=== PATIENT | male | born 1985 | race African-American/Black ===

== ENCOUNTER 2016-10-10 13:30 | Emergency (ER) | payer SELFPAY ==
[~2016-10-10] VITALS: Ht 182.9 cm; Wt 105.0 kg
[~2016-10-10 13:30] MED LIST: DICY1TAB26 PO; PROM25SU8 PO; Z.0.NO CURRENT MEDS; ZOFR4TAB3 SL
[2016-10-10 13:31] VITALS: BP 201/117; PULSE 70; RESP 14; TEMP 98.3; O2SAT 100
[2016-10-10] MEDS ORDERED: cloNIDine HCL 0.1 MG TAB PO ONE (14:00)
--- NOTE | 2016-10-10 14:01 | PD ---
HPI Chief Complaint: Hypertension Time Seen by Provider: 14:10 Travel History International Travel<30 days: No Contact w/Intl Traveler<30days: No Traveled to known affect area: No History of Present Illness HPI 30-year-old male presents for evaluation of hypertension. 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 He reports that several years ago he was told that he has high blood pressure however he lost a lot of weight and felt like his blood pressure was probably under control. He does not check his blood pressure regularly. Incidentally during review of systems he endorses occasional bright red blood per rectum during a bowel movement. He reports a few times a month for the past 10 years this is been going on. Denies any abdominal pain, rectal pain. Denies any lightheadedness or dizziness. No other complaints. PFSH Past Medical History Cardiovascular Problems: Yes (HTN) Social History Alcohol Use: Yes (OCC) Tobacco Use: Yes (2 BLACK N MILDS) Substance Use: Yes (MARIJANNA\) Allergies-Medications (Allergen,Severity, Reaction): Coded Allergies: No Known Allergies (Verified , 07/18/12) Reported Meds & Prescriptions Reported Meds & Active Scripts Active Amlodipine (Amlodipine Besylate) 5 Mg Tab 5 Mg PO DAILY Review of Systems Except as stated in HPI: all other systems reviewed are Neg Physical Exam Narrative GENERAL: Well-developed well-nourished male in no acute distress SKIN: Warm and dry. HEAD: Atraumatic. Normocephalic. EYES: Pupils equal and round. No scleral icterus. No injection or drainage. ENT: No nasal bleeding or discharge. Mucous membranes pink and moist. NECK: Trachea midline. No JVD. CARDIOVASCULAR: Regular rate and rhythm. No murmur appreciated. RESPIRATORY: No accessory muscle use. Clear to auscultation. Breath sounds equal bilaterally. GASTROINTESTINAL: Abdomen soft, non-tender, nondistended. Hepatic and splenic margins not palpable. Rectal examination reveals no hemorrhoids or anal fissures. No palpable masses. MUSCULOSKELETAL: No obvious deformities. No clubbing. No cyanosis. No edema. NEUROLOGICAL: Awake and alert. No obvious cranial nerve deficits. Motor grossly within normal limits. Normal speech. PSYCHIATRIC: Appropriate mood and affect; insight and judgment normal. Data Data Last Documented VS Vital Signs Date Time Temp Pulse Resp B/P Pulse Ox O2 Delivery O2 Flow Rate FiO2 10/10/16 14:10 75 14 157/93 100 Room Air 10/10/16 13:31 98.3 Orders Complete Blood Count With Diff (10/10/16 13:56) Basic Metabolic Panel (Bmp) (10/10/16 13:56) Electrocardiogram (10/10/16 ) Clonidine (Catapres) (10/10/16 14:00) Labs Laboratory Tests Test 10/10/16 14:20 White Blood Count 8.2 TH/MM3 Red Blood Count 4.73 MIL/MM3 Hemoglobin 14.1 GM/DL Hematocrit 42.1 % Mean Corpuscular Volume 89.2 FL Mean Corpuscular Hemoglobin 29.9 PG Mean Corpuscular Hemoglobin 33.5 % Concent Red Cell Distribution Width 14.1 % Platelet Count 243 TH/MM3 Mean Platelet Volume 8.5 FL Neutrophils (%) (Auto) 60.9 % Lymphocytes (%) (Auto) 30.1 % Monocytes (%) (Auto) 6.1 % Eosinophils (%) (Auto) 2.1 % Basophils (%) (Auto) 0.8 % Neutrophils # (Auto) 5.0 TH/MM3 Lymphocytes # (Auto) 2.5 TH/MM3 Monocytes # (Auto) 0.5 TH/MM3 Eosinophils # (Auto) 0.2 TH/MM3 Basophils # (Auto) 0.1 TH/MM3 CBC Comment DIFF FINAL Differential Comment Sodium Level 141 MEQ/L Potassium Level 3.6 MEQ/L Chloride Level 104 MEQ/L Carbon Dioxide Level 26.8 MEQ/L Anion Gap 10 MEQ/L Blood Urea Nitrogen 12 MG/DL Creatinine 0.90 MG/DL Estimat Glomerular Filtration 120 ML/MIN Rate Random Glucose 102 MG/DL Calcium Level 9.2 MG/DL MDM Medical Decision Making Medical Screen Exam Complete: Yes Emergency Medical Condition: Yes Medical Record Reviewed: Yes Interpretation(s) EKG sinus rhythm with some nonspecific ST changes CBC and BMP are unremarkable. Differential Diagnosis Essential hypertension, hypertensive urgency, white coat syndrome Narrative Course 30-year-old male who is sent in after receiving a preemployment physical for asymptomatic hypertension. Initially his blood pressure was recorded here as 201/117 however upon recheck it was 157/93 so clonidine was held. EKG reveals nonspecific ST changes, the patient has no symptoms to suggest ischemia. He endorses occasional rectal bleeding for the past 10 years. Rectal examination was performed, along with a stool Hemoccult, which was negative although there was no significant amount of stool in the rectum that could be simple. Given the duration of symptoms, recommended outpatient follow-up likely with a valve inspector for colonoscopy. The patient be started on low-dose amlodipine here and advised to monitor blood pressure and a regular basis and follow-up with primary care physician for long-term blood pressure management. HemaPrompt Point of Care Internal Pos. & Neg. Controls: Passed Fecal Specimen Occult Blood: Negative Diagnosis Primary Impression: Hypertension Qualified Code: I10 - Essential hypertension Additional Impression: History of rectal bleeding Additional Instructions: Follow-up with primary care physician. Monitor blood pressure 3-4 times a week , keep a journal of these readings. Follow-up with a valve inspector regarding the long-term rectal bleeding. Return for any emergent medical conditions. Med/Other Pt SpecificInfo: Prescription(s) given Scripts Amlodipine 5 Mg Tab5 Mg PO DAILY #30 TAB Ref 0 Prov:Maximus Iyer MD 10/10/16 Disposition: 01 DISCHARGE HOME Condition: Stable Man Marinelli Oct 10, 2016 14:01
[2016-10-10 14:10] VITALS: BP 157/93; PULSE 75; RESP 14; O2SAT 100
--- NOTE | 2016-10-10 14:31 | PD ---
Data Data Last Documented VS Vital Signs Date Time Temp Pulse Resp B/P Pulse Ox O2 Delivery O2 Flow Rate FiO2 10/10/16 14:10 75 14 157/93 100 Room Air 10/10/16 13:31 98.3 Orders Complete Blood Count With Diff (10/10/16 13:56) Basic Metabolic Panel (Bmp) (10/10/16 13:56) Electrocardiogram (10/10/16 ) Clonidine (Catapres) (10/10/16 14:00) MDM Supervised Visit with SOPHIE: Yes Narrative Course The history, exam, and medical decision-making in the associated mid-level provider note were completed with my assistance. I reviewed and agree with the findings presented. I attest that I had a [id number] encounter with the patient on the same day, and personally performed and documented my assessment and findings in the medical record. *My assessment and Findings: 30-year-old man with incidental high blood pressure. Recommend treatment. Scripts No Active Prescriptions or Reported Meds Maximus Iyer MD Oct 10, 2016 14:31
[2016-10-10 15:02] LABS: BASOPHIL # 0.1 TH/MM3 (0-0.2); BASOPHIL % 0.8 % (0.0-2.0); EOSINOPHIL # 0.2 TH/MM3 (0-0.4); EOSINOPHIL % 2.1 % (0.0-4.0); HEMATOCRIT 42.1 % (39.0-51.0); HEMO FLAGS DIFF FINAL; LYMPH % 30.1 % (9.0-44.0); LYMPHOCYTE # 2.5 TH/MM3 (1.0-4.8); MEAN CELL VOLUME 89.2 FL (80.0-100.0); MEAN CORPUSCULAR HEMOGLOBIN 29.9 PG (27.0-34.0); MEAN CORPUSCULAR HGB CONC 33.5 % (32.0-36.0); MONO % 6.1 % (0.0-8.0); NEUT % 60.9 % (16.0-70.0); PLATELET COUNT 243 TH/MM3 (150-450); RED BLOOD COUNT 4.73 MIL/MM3 (4.50-5.90); RED CELL DISTRIBUTION WIDTH 14.1 % (11.6-17.2); WHITE BLOOD COUNT 8.2 TH/MM3 (4.0-11.0)
[2016-10-10] MEDS ORDERED: AMLO5TAB2 PO (15:26)
[2016-10-10 15:37] LABS: BICARBONATE 26.8 MEQ/L (21.0-32.0); POTASSIUM 3.6 MEQ/L (3.5-5.1)
--- NOTE | 2016-10-11 14:08 | EKG ---
Date Performed: 10/10/2016 Time Performed: 12:42:43 PTAGE: 30 years EKG: Sinus rhythm MARKED LEFT AXIS DEVIATION POSSIBLE RIGHT VENTRICULAR CONDUCTION DELAY MINIMAL VOLTAGE CRITERIA FOR LVH, CONSIDER NORMAL VARIANT ST DEVIATION AND MODERATE T-WAVE ABNORMALITY, CONSIDER LATERAL ISCHEMIA ST DEVIATION AND MODERATE T-WAVE ABNORMALITY, CONSIDER INFERIOR ISCHEMIA ABNORMAL ECG NO PREVIOUS TRACING DOCTOR: Huy Shepard Interpretating Date/Time 10/11/2016 13:59:56
== END 2016-10-10 16:04 | disposition home or self-care (01) ==
LOC: NEPB 13:30
DX: I10 Essential (primary) hypertension (principal); F12.90 Cannabis use, unspecified, uncomplicated; K62.5 Hemorrhage of anus and rectum; Z72.0 Tobacco use
CPT/HCPCS: 80048; 85025; 93005